=== PATIENT | male | born 1975 | race Caucasian/White ===

== ENCOUNTER 2017-11-21 10:25 | Emergency (ER) | payer SELFPAY ==
[~2017-11-21] VITALS: Ht 167.6 cm; Wt 68.0 kg
[2017-11-21] MEDS ORDERED: TETANUS, DIPHTHERIA, PERTUSSIS VAC/PF 0.5ML (>7YR OLD) IM ONE (11:15)
[2017-11-21] MEDS ORDERED: LIDOCAINE HCL/PF 1% 10 MG/ML 5ML VIAL IJ ONE (12:15)
[2017-11-21 13:06] VITALS: BP 135/81
== END 2017-11-21 13:50 | disposition home or self-care (01) ==
LOC: ER 12:54
DX: L02.413 Cutaneous abscess of right upper limb (principal); L02.212 Cutaneous abscess of back [any part, except buttock and flank]; R03.0 Elevated blood-pressure reading, without diagnosis of hypertension
CPT/HCPCS: 10060; 90471; 90715; 99283; J3490; Z7610